=== PATIENT | female | born 1990 | race Caucasian/White ===

== ENCOUNTER → 2017-09-26 12:10 | Outpatient (CLI) | payer MEDICAID, SELFPAY ==
--- NOTE | 2017-09-26 12:10 | MASS_PTH ---
PATIENT: DONTE LAKE LOC: [facility] U#:[id number] AGE/SX: 35/F ROOM: RE09/26/[address]: Dr. Devin Mckeon MD : 1990 BED: DIS: SPEC #: [id number] RECD: 09/27/17 17:27 STATUS: ANAY SILVESTRE #: [id number] JA: 09/26/17 12:[address]: Devin Mckeon DEPT: SURGICAL PATHOLOGY RECD BY: Jolanta Lopez ENTERED: 09/28/17 11:19 SP TYPE: Mass OTHR DR: No Primary Care Phys [facility] Tissues: Skin of face, NOS Procedures: Surgery Specimen Level III HEADER OPERATION: Excision of left facial mass PRE-OP DIAGNOSIS: Left facial mass TISSUE SUBMITTED: Left facial mass MICROSCOPIC DIAGNOSIS Left facial mass, excision: Consistent with ruptured epidermal inclusion cyst with focal chronic inflammation and foreign body giant cell reaction. SJ:melonie 09/29/17 MICROSCOPIC DESCRIPTION Slides are reviewed. GROSS DESCRIPTION Received is one container labeled with the patient's name and not further designated. The specimen consists of a previously opened cyst measuring 1.5 x 1 x 0.8 cm. The entire specimen is submitted in one cassette. / ABBY:melonie 09/28/17 TC:5 CPT: 52421
== END ==
PROVIDERS: Visit Provider Otolaryngology
DX: R22.0 Localized swelling, mass and lump, head (principal)
CPT/HCPCS: 88304; 88305

== ENCOUNTER 2017-09-29 18:48 | Emergency (ER) | payer MEDICAID, SELFPAY ==
[2017-09-29 18:48] VITALS: BP 150/98; PULSE 75; RESP 16; TEMP 36.7; O2SAT 100; BMI 21.0
--- NOTE | 2017-09-29 19:28 | ED.VISSUMM ---
- ER Visit Summary Date of Service: 09/29/17 Chief Complaint: Back pain History of Present Illness: The patient is a 27 F presenting with back pain after fall. Patient states she was walking her dog down steps and tripped over the leash, fell down approximately 5 steps. She did not have loss of consciousness. She states she hit her left ear. She had a ear surgery approximately [address] Vences. She states she had a mass removed from her external ear. Denies other complaints. Denies possibility of . She states she has urinated since the fall and had no blood in her urine. Physical Examination: Vitals are stable. Patient is afebrile. Alert no acute distress. HEENT exam is unremarkable. Left external ear incision intact, no signs of infection or bleeding Neck is nontender Lungs are clear and equal bilaterally. Heart is regular rate and rhythm. Abdomen is soft nontender nondistended. Back: right paraspinal lumbar muscle tenderness Extremities are unremarkable. Skin is warm and dry. No focal neurologic deficit. Remainder of exam is unremarkable. Emergency Department Course and Treatment: X-ray the lumbar spine shows no acute process. She is given Valium p.o. She is advised to continue Tylenol at home. Advised to follow-up with Dr. Vences as needed. Advised return to ED if worsening complaints. Disposition: Discharge home Impression: Back pain status post mechanical fall This note was generated with [employer] dictation software. It may contain incorrect words, spelling, and punctuation that were not noted in review of the chart prior to signing ED Disposition - Plan for ED Patient: Chief Complaint: Back Referrals: Care Physician,No Primary [Primary Care Provider] -
[2017-09-29] MEDS: diazePAM 5 MG Tablet PO (19:38)
--- NOTE | 2017-09-29 19:40 | RAD_ITS ---
STUDY: X-RAY - LUMBAR SPINE REASON FOR EXAM: Female, 27 years old. Lower back pain after falling. TECHNIQUE: 3 view(s) of the lumbar spine were obtained. COMPARISON: Prior lumbar spine series of September 30, 2015 FINDINGS: Normal lumbar lordosis. There is no substantial scoliosis. There is a normal alignment of the vertebrae. Normal vertebral bodies and endplates. Normal disc space heights. The soft tissue structures are unremarkable. RAD/Lumbar Spine 2 or 3 Views IMPRESSION: Normal x-ray examination of the lumbar spine. Electronically Signed: Helen Man MD at 20:38 EST , Service support ,
--- NOTE | 2017-09-29 21:01 | ED.DEP ---
ED Disposition - Plan for ED Patient: Chief Complaint: Back Instructions: ED Low Back Pain Injury Referrals: Care Physician,No Primary [Primary Care Provider] - Henrik Mckeon MD [STAFF PHYSICIAN] -
[2017-09-29 21:21] VITALS: BP 137/88; PULSE 73; RESP 16; O2SAT 96
== END 2017-09-29 21:21 | disposition home or self-care (01) ==
LOC: ED 19:32
PROVIDERS: Emergency Provider Emergency Medicine
DX: M54.5 Low back pain (principal); W10.9XXA Fall (on) (from) unspecified stairs and steps, initial encounter; Y93.K1 Activity, walking an animal; Y92.9 Unspecified place or not applicable; Z98.890 Other specified postprocedural states
CPT/HCPCS: 72100; 99282

== ENCOUNTER 2017-10-18 22:10 | Emergency (ER) | payer MEDICAID, SELFPAY ==
[2017-10-18 22:11] VITALS: BP 113/76; PULSE 81; RESP 15; TEMP 36.5; BMI 20.5
--- NOTE | 2017-10-18 23:09 | ED.VISSUMM ---
- ER Visit Summary Date of Service: 10/18/17 Chief Complaint: Rash History of Present Illness: The patient is a 27 F with no primary care physician. She reports that she has a rash that began 2-3 days ago. It is on both of her forearms and her anterior and posterior neck. It is that it itches. Patient denies any change in soap, shampoo, laundry detergent, or fabric softener. No new clothing, bedding, carpeting, or pets. No new medications in the past month. Physical Examination: Vitals: Stable. Afebrile. General: Well-nourished and well-developed. Head: Normocephalic atraumatic. Neck: Supple, no lymphadenopathy. No JVD. Nontender. Cardiovascular: Regular rate and rhythm. No murmurs. Respiratory: No respiratory distress. Clear to auscultation bilaterally. Abdominal: Soft, nontender, nondistended, normal bowel sounds. No guarding, rebound, or peritoneal signs. Back: Nontender. Extremities: Nontender, no edema. Skin: 1-2 mm macular papular pink lesions that are scattered over the anterior surface of her forearms bilaterally. These are also over the anterior surface of her neck both anteriorly and posteriorly. There are no vesicles. No urticaria. No pustules. Neurologic: Alert and oriented ?3. Cranial nerves II through XII are intact. Normal strength and sensation. Psych: Normal affect. Emergency Department Course and Treatment: Did not have an explanation for the patient's rash. It does not appear to be anything that is life-threatening. I suspect it is a contact dermatitis. She will have the pruritus treated with Benadryl here. Treatment Plan: Patient will be discharged on Zyrtec. Instructed to follow-up the [facility] in 1 week if not improving. Disposition: To home in improved and stable condition. Impression: 1. Dermatitis, uncertain cause. This note was generated with [employer] dictation software. It may contain incorrect words, spelling, and punctuation that were not noted in review of the chart prior to signing ED Disposition - Plan for ED Patient: Disposition: Home or Assisted Living Chief Complaint: Rash Instructions: ED Dermatitis Contact Prescriptions: Cetirizine HCl [Zyrtec] 10 mg PO DAILY #14 tab.rapdis Referrals: [facility] [NON-STAFF] - 1 Week if not improving
[2017-10-18 23:26] VITALS: PULSE 86; RESP 17; O2SAT 99
[2017-10-18] MEDS: DiphenhydrAMINE 25 MG Capsule 50 MG PO (23:26)
== END 2017-10-18 23:28 | disposition home or self-care (01) ==
LOC: ED 23:18
PROVIDERS: Emergency Provider Emergency Medicine
DX: L30.9 Dermatitis, unspecified (principal); Z72.0 Tobacco use
CPT/HCPCS: 99283

== ENCOUNTER 2017-10-23 21:15 | Emergency (ER) | payer MEDICAID, SELFPAY ==
[2017-10-23 21:17] VITALS: BP 140/89; PULSE 89; PULSE 98; RESP 14; RESP 17; TEMP 37.1; O2SAT 100; O2SAT 99; BMI 21.2
--- NOTE | 2017-10-23 22:36 | ED.VISSUMM ---
- ER Visit Summary Date of Service: 10/23/17 Chief Complaint: Mid to lower back pain after lifting a stove History of Present Illness: The patient is a 27 F states that she was helping her dad left the stove earlier today and she felt pain in her mid lower back after lifting. Denies any numbness, tingling or weakness in her lower extremities. No prior back surgery. She has had prior back pain. She denies any fever. She denies any dysuria. She denies any bowel or bladder incontinence or retention. She denies any weakness in her lower extremities. Pain worse with movement. Physical Examination: Appearing young female. Vital signs are stable and afebrile. She does not look septic or toxic. She is in no acute distress. H EENT exam is normal. Neck nontender no lymphadenopathy. Lungs clear to auscultation bilaterally. Heart rate and rhythm no murmur. Abdomen soft nontender nondistended no giving or masses. She is moving all 4 extremities. Neurovascular intact. 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 Full range of motion of both upper extremities. Both lower extremities are neurovascular intact. No cauda equina. No saddle anesthesia. Normal medial thigh sensation. 5 out of 5 motor strength in both dorsi and plantar flexion. Full range of motion of both lower extremities. Negative straight leg raise bilaterally. Neurologic exam normal. NIH is 0. Back exam parathoracic and upper lumbar soft tissue tenderness consistent with back strain. No redness or warmth. Test Results: None Emergency Department Course and Treatment: Patient's history and exam is consistent with parathoracic and paralumbar myofascial strain. She has had prior negative back x-rays. They are not warranted at this time. Treatment Plan: [place] here for pain. Otherwise anti-inflammatories at home. No narcotic prescription. Hot shower and warm bath. Massage. Disposition: dc Impression: Parathoracic and lumbar strain This note was generated with [employer] dictation software. It may contain incorrect words, spelling, and punctuation that were not noted in review of the chart prior to signing ED Disposition - Plan for ED Patient: Chief Complaint: Back Referrals: Care Physician,No Primary [Primary Care Provider] -
--- NOTE | 2017-10-23 22:48 | ED.DEP ---
ED Disposition - Plan for ED Patient: Disposition: Home or Assisted Living Chief Complaint: Back Instructions: ED Sprain Strain Lumbar Referrals: Henrik Boothe MD [STAFF PHYSICIAN] - 10-14 Days if not better Additional Instructions: Motrin and Tylenol for pain. Hot shower and warm bath to relax the muscles. Massage. Call follow-up the primary care physician if not improving.
[2017-10-23] MEDS: oxyCODONE 5 MG Tablet PO (23:09)
[2017-10-23 23:10] VITALS: BP 132/75; PULSE 78; RESP 18; O2SAT 98
== END 2017-10-23 23:11 | disposition home or self-care (01) ==
PROVIDERS: Emergency Provider Emergency Medicine
DX: S29.012A Strain of muscle and tendon of back wall of thorax, initial encounter (principal); S39.012A Strain of muscle, fascia and tendon of lower back, initial encounter; X50.9XXA Other and unspecified overexertion or strenuous movements or postures, initial encounter; Y93.9 Activity, unspecified; Y92.9 Unspecified place or not applicable; Y99.9 Unspecified external cause status; Z72.0 Tobacco use
CPT/HCPCS: 99283

== ENCOUNTER → 2017-10-30 22:35 | Outpatient (CLI) | payer MEDICAID, SELFPAY ==
[2017-11-05 06:20] LABS: HPV Reflexed? NOT INDICATED
== END ==
PROVIDERS: Visit Provider Obstetrics & Gynecology
DX: Z12.4 Encounter for screening for malignant neoplasm of cervix (principal)
CPT/HCPCS: 88175; G0145

== ENCOUNTER 2017-11-01 21:40 | Emergency (ER) | payer MEDICAID, SELFPAY ==
[2017-11-01 21:41] VITALS: BP 136/84; PULSE 100; RESP 16; TEMP 36.8; O2SAT 99; BMI 22.1
--- NOTE | 2017-11-01 22:39 | RAD_ITS ---
STUDY: X-RAY - LUMBAR SPINE REASON FOR EXAM: Female, 27 years old. Back pain after heavy lifting. TECHNIQUE: 3 view(s) of the lumbar spine were obtained. COMPARISON: 09/29/2017. FINDINGS: Normal lumbar lordosis. There is no substantial scoliosis. There is a normal alignment of the vertebrae. Normal vertebral bodies and endplates. Normal disc space heights. The soft tissue structures are unremarkable. There are surgical clips overlying the pelvis, consistent with prior tubal ligation. RAD/Lumbar Spine 2 or 3 Views IMPRESSION: Normal x-ray examination of the lumbar spine. Electronically Signed: Billy Holt MD at 0:04 EDT , Service support ,
--- NOTE | 2017-11-01 22:39 | RAD_ITS ---
STUDY: X-RAY - THORACIC SPINE REASON FOR EXAM: Female, 27 years old. Back pain TECHNIQUE: 2 view(s) of the thoracic spine were obtained. COMPARISON: None. FINDINGS: Normal kyphosis of the thoracic spine. There is no substantial scoliosis. Normal thoracic vertebrae and endplates. Normal disc space heights. The soft tissue structures are unremarkable. RAD/Thoracic Spine 2 Views IMPRESSION: Normal x-ray examination of the thoracic spine. Electronically Signed: Andrea Perry DO at 23:45 EDT , Service support ,
[2017-11-01] MEDS: Ketorolac 15 MG/ML Vial IM (22:58)
[2017-11-01 23:07] VITALS: BP 107/71; PULSE 83; O2SAT 98
[2017-11-01] MEDS: Ondansetron ODT 4 MG Tablet PO (23:07)
--- NOTE | 2017-11-01 23:57 | ED.VISSUMM ---
- ER Visit Summary Date of Service: 11/01/17 Chief Complaint: Back pain History of Present Illness: The patient is a 27 F presenting for evaluation secondary back pain. Patient states approximately 3 weeks ago she helped a friend move a stove. Patient states that she felt a pop in her thoracic back. She claims that she came into the emergency department and the doctor never even looked at her and told her that she had a strain spine. Patient states that she has had continued pain over the course of 3 weeks with some radiation down her left leg. She denies any bowel or bladder incontinence, fevers, recent injections procedures her history is of IV drug use. Denies any fevers or weight loss. Patient states the Tylenol has been helping her pain. Physical Examination: Vitals: Within normal limits General: Well-nourished well-developed no acute distress Head: Normocephalic atraumatic ENT: Moist mucous membranes Neck: Supple no JVD Cardiovascular: Heart regular rate and rhythm no murmurs Respiratory: Respirations nondistressed, lung sounds clear to auscultation bilaterally Abdominal: Soft, nontender, nondistended, normal bowel sounds, no evidence of abdominal masses or pulsatile mass Back: Normal to inspection, no midline tenderness to palpation, paraspinal tenderness to palpation noted in the thoracic spine, straight leg raise negative bilaterally Extremities: Nontender, nonedematous, 2+ radial and PT pulses bilaterally symmetric Skin: Normal color no rash Neuro: 5/5 strength hip flexion, knee flexion, knee extension, dorsiflexion, plantarflexion, EHL. Sensation intact over all dermatomes of the lower extremities bilaterally, 2+ patellar and Achilles reflexes bilaterally symmetric, negative clonus bilaterally Test Results: T-spine and L-spine x-rays are negative per my personal interpretation Emergency Department Course and Treatment: Patient presented secondary to back pain. Patient has never had any sort of imaging, so x-rays were obtained. These are found to be negative. Patient's physical exam and history still seem consistent with a strain. Patient will be placed on NSAIDs and muscle relaxers and instructed to follow-up with primary care. Disposition: Discharge Impression: 1. Thoracic back strain subsequent encounter This note was generated with [employer] dictation software. It may contain incorrect words, spelling, and punctuation that were not noted in review of the chart prior to signing ED Disposition - Plan for ED Patient: Disposition: Home or Assisted Living Chief Complaint: Back Diagnosis: Thoracic myofascial strain Instructions: ED Sprain Strain Lumbar Prescriptions: Naproxen [Naprosyn] 500 mg PO BID PRN #20 tab Cyclobenzaprine [Flexeril] 10 mg PO TID PRN #20 tab PRN Reason: Muscle Spasm Referrals: Gianluca Brooks MD [STAFF PHYSICIAN] -
[2017-11-02] MEDS: Orphenadrine 60 MG/2 ML Ampul IM (00:11)
[2017-11-02 00:37] VITALS: BP 113/81; RESP 18; O2SAT 100
== END 2017-11-02 00:38 | disposition home or self-care (01) ==
PROVIDERS: Emergency Provider Emergency Medicine
DX: S29.012A Strain of muscle and tendon of back wall of thorax, initial encounter (principal); X50.0XXA Overexertion from strenuous movement or load, initial encounter; Y93.9 Activity, unspecified; Y92.9 Unspecified place or not applicable; Y99.9 Unspecified external cause status; Z72.0 Tobacco use
CPT/HCPCS: 72070; 72100; 96372; 99282

== ENCOUNTER → 2017-11-30 11:44 | Outpatient (CLI) | payer MEDICAID, SELFPAY ==
--- NOTE | 2017-11-30 | EMB_PTH ---
PATIENT: DONTE LAKE LOC: [facility] U#:[id number] AGE/SX: 35/F ROOM: RE11/30/[address]: Dr. Constantine Najera MD : 1990 BED: DIS: SPEC #: [id number] RECD: 11/30/17 14:40 STATUS: ANAY SILVESTRE #: [id number] JA: 11/30/17 00:[address]: Constantine Najera DEPT: SURGICAL PATHOLOGY RECD BY: Hudson López Tissues: Endometrium, NOS Procedures: Surgery Specimen Level IV HEADER OPERATION: Endometrial biopsy PRE-OP DIAGNOSIS: N92.5, N92.0 TISSUE SUBMITTED: Endometrial biopsy MICROSCOPIC DIAGNOSIS Endometrial biopsy: Secretory endometrium. ABBY:melonie 12/01/17 MICROSCOPIC DESCRIPTION Slides are reviewed. GROSS DESCRIPTION Received in fixative is one container labeled with the patient's name and designated EM biopsy. The specimen consists of multiple irregular fragments of pink-red soft tissue that in aggregate measure 2.5 x 1 x 0.1 cm. The specimen is totally submitted in one cassette. / SJ:rg 11/30/17 TC:4 CPT: 70420
[2017-11-30 13:10] LABS: Thyroid Stim Hormone (TSH) 2.18 uIU/mL (0.358-3.74)
[2017-12-01 11:17] LABS: Cancer Antigen 125 10.5 U/mL (0.0-38.1)
== END ==
PROVIDERS: Visit Provider Obstetrics & Gynecology
DX: N92.0 Excessive and frequent menstruation with regular cycle (principal); N99.83 Residual ovary syndrome; N92.5 Other specified irregular menstruation
CPT/HCPCS: 36415; 84443; 86304; 88305

== ENCOUNTER 2017-12-18 08:12 | Day surgery (SDC) | payer MEDICAID, SELFPAY ==
--- NOTE | 2017-12-17 14:26 | HP.PCM_ITS ---
History and Physical Date of Admission: 12/18/17 Surgical History and Physical Lulú Tracy, a 27 year old female 2 0 0 0 2, presents for L/S LSO, H/S, D and C, HTA on December 18, 2017 at 10:15. -- Menorrhagia, Complex Left Ovarian Cyst -- Heavy menses which began years ago. It occurs with menses. It is located in the vagina. Severity is intolerable and worsening; Associated signs and symptoms are u/s shows complex left adnexal mass. Additional comments are: prior tubal. MEDICATIONS HISTORY: Patient is also takin. 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 Accidents - no injuries of consequence Hospitalizations - as child - heart testing Review of Systems: GENERAL - Denies fever, or chills SKIN - Denies skin changes EYES - Denies visual changes EARS - Denies difficulty hearing NOSE - Denies nasal congestion or bleeding MOUTH - Denies sore throat or difficulty swallowing NECK - Denies pain or swelling RESPIRATORY - Denies shortness of breath or wheezing CARDIOVASCULAR - Denies palpitations or chest pain GASTROINTESTINAL - Denies nausea, vomiting, diarrhea, constipation GENITOURINARY - Denies dysuria, frequency of urination, incontinence of urine MUSCULOSKELETAL - Denies joint or muscle pain NEUROLOGICAL - Denies localized numbness or weakness PSYCHIATRIC - Denies depression or anxiety ENDOCRINE - Denies heat or cold intolerance, weight loss or gain HEMATO-IMMUNOLOGIC - Denies excessive bleeding with cuts SOCIAL HISTORY: Alcohol Use - denies drinking Smoking - 5-6 cigarettes daily and Vaps Diet - balanced Diet and caffeine < 2 drinks per day Lifestyle - moderate stress lifestyle Exercise - regular and walking Seat Belt Use - always Employer - unemp Illicit Drug Use - denies use of street drugs Sexual Activity - ACTIVE ONE PARTNER Residence - lives with mother and mom's SO in [place] - [place] Spouse-Sig Other Phone No - -- Children Name(s) - Renae Macias Control - Prior Tubal FAMILY HISTORY: Mother: pulmonary heart disease, epilepsy, asbes and Heart Disease. Father: DM II. Brother: epilepsy. Maternal Grandmother: dementia and DM I. Maternal Grandfather: , Asthma and Coronary heart disease. Paternal Grandmother: cancer. Paternal Grandfather: cancer. Paternal Aunt: throat cancer. MENSTRUAL HISTORY: LMP Known?- DefiniteAmount/Duration - 5-6 DAYS, Regularity - Irregular, Frequency - variable days, LMP - 11/17/17, Age Onset Menarche - 12 PAST PREGNANCIES: Total Pregnancies - 2; Full Term Pregnancies - 2; Premature - 0; Abortions, Induced - 0; Abortions, Spontaneous - 0; Ectopics - 0; Multiple Births - 0; Living Children - 2 SURGICAL HISTORY: 1. 07/24/2017 Lap BTO with filshie clips and distal BPS, dx hysteroscopy, D and C, lysis of adhesions ; Constantine Najera M.D. - 2. 09/26/2017 (L) Ear Surgery ; - PHYSICAL EXAM BP- 114/72 Sitting, Right arm, regular cuff Weight- 122.03650 lbs Height- 64 inch BMI:20.99 CONSTITUTIONAL - NAD, well nourished, and well developed SKIN - No rash, lesions, or ulcers HEENT - Normocephalic, PERRLA, EOMI NECK - No nodes, no nuchal rigidity and thyroid normal size and texture LYMPH NODES - Palpation of lymph nodes in neck and groins within normal limits LUNGS - CTA x2 without wheezes, crackles or rales CARDIAC - Regular rate and rhythm without rubs, murmurs, or gallops BREAST - No dominant masses, no tenderness, no axillary adenopathy, no nipple discharge, no skin changes ABDOMEN - Without hepatosplenomegaly, distention, masses, rebound, or guarding; normal bowel sounds; no hernias EXTREMITIES - No edema or calf tenderness NEUROLOGICAL - Cranial nerves II-XII grossly intact PSYCHIATRIC - A and O to time, place, person, mood and affect DETAILED PELVIC EXAM External Genitial Vagina - non-tender without lesions Urethra/Urethral Meatus - non-tender Bladder - non-tender Vagina - vaginal myers are pink and moist without loss of rugae and no evidence of atropy Cervix - without cervical motion tenderness and has normal size and features without evident lesions Uterus - multiparous size 6 cm & wt 75-125 g Adnexa - clear without masses or tenderness ASSESSMENT/PLAN: Menorrhagia; Ovarian Cyst EMBx, U/S, TSH and CA-125 OK. Plan to proceed with H/S, HTA, D and C and L/S LSO. Discussed RBAs and all questions answered.
--- NOTE | 2017-12-18 | EMB_PTH ---
PATIENT: DONTE LAKE [place] [facility] [id number] AGE/SX: 27/F ROOM: RE12/18/[address]: Dr. Constantine Najera MD : 1990 BED: DIS: 12/18/2017 SPEC #: [id number] RECD: 12/18/17 14:02 STATUS: ANAY SILVESTRE #: [id number] JA: 12/18/17 00:[address]: Constantine Najera DEPT: SURGICAL PATHOLOGY RECD BY: Hudson López ENTERED: 12/18/17 14:03 SP TYPE: ENDOM BX/C JERMAINE DR: No Primary Care Phys Tissues: A - Endometrium, NOS B - Left ovary Procedures: Surgery Specimen Level IV HEADER OPERATION: Left laparoscopic salpingo-oophorectomy PRE-OP DIAGNOSIS: Complex left ovarian cyst TISSUE SUBMITTED: A. Endometrial curettings, B. Left ovary MICROSCOPIC DIAGNOSIS A. Endometrial curettings: Proliferative endometrium. B. Left ovary, oophorectomy: Hemorrhagic cyst (3 cm in greatest dimension). See comment. Physiologic follicular and corpus luteum cysts. ABBY:melonie 12/19/17 COMMENT B. No obvious lining is identified in the largest hemorrhagic cyst. MICROSCOPIC DESCRIPTION Slides are reviewed. GROSS DESCRIPTION A - Received in fixative is one container labeled with the patient's name and designated endometrial curettings. The specimen consists of multiple fragments of hemorrhagic soft tissue that in aggregate measure 3 x 2.5 x 0.2 cm. The specimen is totally submitted in one cassette. B - Received in fixative is one container labeled with the patient's name and designated left ovary. The specimen consists of a solid cystic ovary measuring 3.5 x 3.5 x 1.5 cm and weighing 9 gm. The ovary is previously opened. The external surface is smooth. Sections reveal a smooth walled cyst measuring 3 cm in greatest dimension. Health Plan Manager sections are submitted in four cassettes. / ABBY:melonie 12/18/17 TC:5 CPT: 11003 x2
[2017-12-18 08:46] VITALS: BP 110/68; PULSE 63; RESP 16; TEMP 36.5; O2SAT 99; BMI 21.9
[2017-12-18 08:47] LABS: Hematocrit 36.1 % (37-47); Hemoglobin 11.8 g/dl (12.0-15.0); Mean Corp Hgb Conc 32.7 g/gl (32-36); Mean Corpuscular Hgb 27.7 pg (27.0-32.0); Mean Corpuscular Volume 84.7 fL (81-99); Mean Platelet Vol. 11.9 fl (6.2-12.0); Platelet Count 184 K/mm3 (150-450); RBC Distribution Width CV 12.9 % (11.6-14.6); RBC Distribution Width SD 39.2 fl (35.1-43.9); Red Blood Count 4.26 M/mm3 (4.2-5.4); White Blood Count 5.9 K/mm3 (4.4-11.0)
[2017-12-18 08:51] LABS: Scan Indicated on CBC? Y/N NO
[2017-12-18 09:10] LABS: Prothrombin Time (Protime)PT. 13.4 SECONDS (11.7-14.9)
[2017-12-18 09:11] LABS: Partial Thromboplast Time 31.4 Seconds (24.1-36.2)
--- NOTE | 2017-12-18 10:29 | OP.PCM_ITS ---
Operative Report Date of Procedure: 12/18/17 Surgeon: Constantine Najera MD, FACOG [employer] Attendant: RACHAEL Mao Anesthesia: RACHAEL Meyer Type of anesthesia: General Endotracheal Procedure: Diagnostic Hysteroscopy, Dilation and Curettage, Hydrothermal Ablation; Diagnostic Laparoscopy, Left Oophrectomy, Lysis of Adhesions Pre-op: Menorrhagia, Left Complex Ovarian Cyst Post-Op: Menorrhagia, Left Complex Ovarian Cyst; Adhesions Findings: 10 cm EM cavity with normal-appearing endometrium and a possible 3 by 0.5 centimeter polyp; bulbous cervix which protruded to within about 3 cm of the vaginal introitus with tenaculum pulldown. Normal pelvis with evidence of prior bilateral salpingectomy and Filshie clip placement on tubes. Left ovary which appeared cystic but was adhered densely to the left pelvic sidewall. Left ovary approximately 4-5 cm x 2 cm x 3 cm. Right ovary and uterus appeared normal. 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 Indication: This is a 27 year old patient status post tubal ligation who has been having problems with extremely heavy menses. Conservative measures have not been helpful. In the course of her workup a complex left ovarian cyst was also noted. Endometrial sampling was benign and pelvic ultrasound showed that ablation may be helpful. Pt has been counseled regarding the risks, benefits and alternatives of this procedure and all questions answered. She understands that only about half of patients will have amenorrhea after this procedure. Procedure: Patient taken to the operating room where after induction of general anesthesia the patient was prepped and draped in the usual sterile fashion. Bladder was drained of urine with a catheter. Anterior cervix grasped and cervix was dilated to about 17 Divehi size. Hysteroscopic hydrothermal ablation (HTA) unit was placed in the cervix and the above findings were noted. HTA unit was removed and the uterus was gently curretted removing all contents. An HTA ablation cycle was then carried out at about 90 degrees Centigrade for 10 minutes with virtually no fluid loss during the procedure. It was necessary to use 3 HTA cartridges during the procedure as the uterus expanded during the initial heat cycles and it would not pass the leak test. We eventually overcame this by giving IV Pitocin and IM Methergine and lowering the HTA unit about 3-4 inches below the vagina. After an appropriate cool down the HTA unit was removed with minimal bleeding noted. Conn cannula was placed and attention was turned toward the laparoscopic portion of the procedure. Approximately 15 cc of half percent ropivacaine was injected subumbilically suprapubically and about 10 cm left of the umbilical trocar. A 5 mm bladeless trocar was placed subumbilically and intraperitoneal placement confirmed. After CO2 insufflation was complete, a 5 mm bladeless trocar was introduced suprapubically. The above findings were noted. A 5 mm port was then placed about 10 cm left of the subumbilical port under direct visualization. The above findings were noted. The ovary was taken down from the left pelvic sidewall with sharp scissors dissection after identifying the ureter which was peristalsing approximately a centimeter posteriorly. An Enseal device was used to divide the left infundibulopelvic ligament. The 5 mm trocar was removed and a 10/12 mm bladeless trocar was then introduced suprapubically and the ovary and tube were placed in an Endobag. These were brought through the skin without difficulty. There was noted to be some oozing from the left pelvic sidewall which was cauterized using the Enseal device and Nataliia was placed across this area to help with postoperative hemostasis. Irrigation was also used prior to placing the Nataliia. The peritoneal cavity and upper abdomen were examined. Photographs were taken. Laparoscopic instruments with as much CO2 gas as possible were removed and incisions were closed with interrupted 4-0 Monocryl suture. The lower incision was closed with running subcutaneous 3-0 Vicryl suture before closing with a 4-0 Monocryl suture subcuticularly. Steri- Strips placed across the incisions. The patient tolerated the procedure well and was taken to the recovery room in satisfactory condition. Sponge, instruments and needle counts were all correct. There were no apparent complications of the surgery. Cefotan 2 gms IV was given prior to the procedure. Estimated Blood Loss: Minimal Specimen to Pathology: Endometrial Curettings, left ovary
--- NOTE | 2017-12-18 10:31 | DCINST_ITS ---
Discharge Diet: No Restrictions - Increase fluid intake for the next 48 hours. Discharge Activity: Return to Normal Activity, May Drive - when you are no longer taking pain/narcotic medicines., May Shower, May Take a Tub Bath May resume sexual activity in: 3 weeks, 4 weeks Additional Activity Instructions:: Ambulate often the next week after surgery. Nothing in the vagina for 5 days. Call your doctor if your incision/area has: Continuous Slow Oozing, Sudden Increased Bleeding, Increased Pain/ Swelling, Increased Redness, Foul Smelling Discharge Call your doctor if you observe: Fever of 101 or Higher, Inability to urinate, Inability to have a bowel movement, Using more than one pad per hour Allergies/Adverse Reactions: Allergies acetaminophen [From [place]] Allergy (Verified 12/11/17 08:44) Hives hydrocodone [From [place]] Allergy (Verified 12/11/17 08:44) Hives ibuprofen [From Motrin] Allergy (Verified 12/11/17 08:44) Itching codeine Adverse Reaction (Verified 12/11/17 08:44) Nausea/Vom/Diarrhea Medications to take at Discharge Oxycodone [Oxyir] 5 mg PO Q4H PRN PRN 7 Days #14 tab 12/18/17 The following prescriptions were given: Oxycodone [Oxyir] 5 mg PO Q4H PRN PRN 7 Days #14 tab PRN Reason: Severe Pain (6-1010) Primary Care Physician: Care Physician,No Primary [Primary Care Provider] - Please Follow Up With: Constantine Najera MD - [phone] When: 2-3 weeks
[2017-12-18] MEDS: Methylergonovine 0.2 MG/ML Ampul IM (11:05)
[2017-12-18] MEDS: Ropivacaine 0.5% 30 ML Vial (12:00)
[2017-12-18 12:41] VITALS: BP 110/68; BP 132/80; PULSE 78; RESP 16; TEMP 36; O2SAT 100
[2017-12-18 13:00] VITALS: BP 110/68; BP 153/73; PULSE 60; RESP 16; O2SAT 99
[2017-12-18 13:15] VITALS: BP 110/68; BP 165/97; PULSE 51; RESP 16; TEMP 36.4; O2SAT 99
[2017-12-18] MEDS: oxyCODONE 5 MG Tablet PO (13:19)
[2017-12-18 15:38] VITALS: BP 110/68; BP 138/70; PULSE 68; RESP 16; O2SAT 98
== END 2017-12-18 15:44 | disposition home or self-care (01) ==
LOC: SDC 08:13
PROVIDERS: Visit Provider Obstetrics & Gynecology
PROC: (CPT 58720; principal; 2017-12-18 09:40)
PROC: 0U5B8ZZ Destruction of Endometrium, Via Natural or Artificial Opening Endoscopic (ICD-10-PCS; CPT 58563; 2017-12-18 09:40)
DX: N83.12 Corpus luteum cyst of left ovary (principal); N83.02 Follicular cyst of left ovary; N92.0 Excessive and frequent menstruation with regular cycle; F17.210 Nicotine dependence, cigarettes, uncomplicated; Z98.51 Tubal ligation status
CPT/HCPCS: 58563; 58661; 36415; 85027; 85610; 85730; 86850; 86900; 88305; J7120; C1760

== ENCOUNTER 2018-01-03 21:59 | Emergency (ER) | payer MEDICAID, SELFPAY ==
[2018-01-03 22:00] VITALS: BP 132/90; PULSE 101; RESP 20; TEMP 37; O2SAT 100; BMI 22.3
--- NOTE | 2018-01-03 22:27 | ED.VISSUMM ---
- ER Visit Summary Date of Service: 01/03/18 Chief Complaint: Pain and drainage left lower quadrant laparoscopic port site History of Present Illness: The patient is a 27 F who had surgery December [address] Najera. She underwent thermal ablation, diagnostic laparoscopic surgery with lysis of adhesion and left oophorectomy. She presents today because of drainage from the port site. She denies fever, chills night sweats. She denies discoloration of her skin. She complains of burning pain at the port site. She denies dysuria, frequency, urgency or hematuria. She denies vaginal discharge. She denies any flank pain. She denies any vomiting or diarrhea. She reports nausea. Physical Examination: The port site is 3 mm in size. There is serous sanguinous drainage noted. There is no erythema, warmth, induration, fluctuance or lymphangitis. There is no inguinal lymphadenopathy. Patient has pain out of proportion to tactile stimulus. Abdomen is soft nontender with normal bowel sounds. There is no flank discomfort. Heart is regular without murmur, gallop or rub. S1 and S2 are normal. Lungs are clear to auscultation with good movement of air bilaterally. Test Results: None are indicated Emergency Department Course and Treatment: Wound dressing and Tylenol for pain. Of note patient has numerous allergies to opiates and NSAIDs. Treatment Plan: Follow-up with Dr. Najera as needed Disposition: Discharged to home with appropriate home-going instruction Impression: Postop wound without evidence of infection (laparoscopic port site left lower quadrant) This note was generated with [employer] dictation software. It may contain incorrect words, spelling, and punctuation that were not noted in review of the chart prior to signing ED Disposition - Plan for ED Patient: Disposition: Home or Assisted Living Chief Complaint: Wound Check Instructions: ED Wound Check Post Op No Infec Referrals: Care Physician,No Primary [Primary Care Provider] - Constantine Najera MD [STAFF PHYSICIAN] - 3-5 Days if not improving Additional Instructions: Take Tylenol for your pain
--- NOTE | 2018-01-03 22:33 | NURSING ---
PATIENT LEFT WITHOUT DISCHARGE PAPERS OR BEING REGISTERED.
== END 2018-01-03 22:35 | disposition home or self-care (01) ==
LOC: ED 22:34
PROVIDERS: Emergency Provider Emergency Medicine
DX: T81.89XA Other complications of procedures, not elsewhere classified, initial encounter (principal); R11.0 Nausea; Z98.890 Other specified postprocedural states; Z72.0 Tobacco use
CPT/HCPCS: 99282

== ENCOUNTER 2018-01-21 16:12 | Emergency (ER) | payer MEDICAID, SELFPAY ==
[2018-01-21 16:12] VITALS: BP 135/74; PULSE 90; RESP 16; TEMP 37.6; O2SAT 99; BMI 21.9
[2018-01-21 16:29] VITALS: PULSE 86; RESP 12; O2SAT 100
[2018-01-21 16:32] VITALS: PULSE 88
--- NOTE | 2018-01-21 16:34 | ED.VISSUMM ---
- ER Visit Summary Date of Service: 01/21/18 Chief Complaint: Left shoulder pain History of Present Illness: The patient is a 27 F states he started getting left neck and shoulder pain last night at rest. Worse with movement. Denies any fever. No chest pain. No shortness of breath. Denies any prior history. States she sleeps on the couch daily. Denies any weakness or numbness to her left upper extremity. Physical Examination: Well-appearing young female. Vital signs are stable afebrile. Pulse ox 9 9% room air no signs of hypoxia. HEENT exam unremarkable. Trachea midline. No lymphadenopathy. She has left trapezius tenderness consistent with myofascial spasm. She has full range of motion her left shoulder. Left hand is neurovascularly intact with 5 out of 5 silvering applicator strength normal touch sensation normal range of motion. Normal radial pulse. Both radial pulses are equal and symmetrical. Lungs clear to auscultation bilaterally. Heart regular rhythm no murmur rate about 90. Chest wall nontender. Abdomen soft nontender. She is moving all 4 extremities. Neurovascularly intact. Back exam is consistent with left trapezial soft tissue tenderness consistent with muscle spasm. Neurologic exam is normal with no focal motor or sensory deficits. Test Results: None Emergency Department Course and Treatment: P.o. Valium here. She has a ride home. Treatment Plan: She will be treated as muscle spasm. She has care source insurance she will be written for [facility]. Disposition: Discharge Impression: Acute left trapezius muscle spasm This note was generated with [employer] dictation software. It may contain incorrect words, spelling, and punctuation that were not noted in review of the chart prior to signing ED Disposition - Plan for ED Patient: Chief Complaint: Other, Pain/Inj Referrals: Care Physician,No Primary [Primary Care Provider] -
--- NOTE | 2018-01-21 16:37 | ED.DCSUM_ITS ---
- ER Visit Summary Date of Service: 01/21/18 Chief Complaint: Left shoulder pain History of Present Illness: The patient is a 27 F states he started getting left neck and shoulder pain last night at rest. Worse with movement. Denies any fever. No chest pain. No shortness of breath. Denies any prior history. States she sleeps on the couch daily. Denies any weakness or numbness to her left upper extremity. Physical Examination: Well-appearing young female. Vital signs are stable afebrile. Pulse ox 9 9% room air no signs of hypoxia. HEENT exam unremarkable. Trachea midline. No lymphadenopathy. She has left trapezius tenderness consistent with myofascial spasm. She has full range of motion her left shoulder. Left hand is neurovascularly intact with 5 out of 5 campground caretaker strength normal touch sensation normal range of motion. Normal radial pulse. Both radial pulses are equal and symmetrical. Lungs clear to auscultation bilaterally. Heart regular rhythm no murmur rate about 90. Chest wall nontender. Abdomen soft nontender. She is moving all 4 extremities. Neurovascularly intact. Back exam is consistent with left trapezial soft tissue tenderness consistent with muscle spasm. Neurologic exam is normal with no focal motor or sensory deficits. Test Results: None Emergency Department Course and Treatment: P.o. Valium here. She has a ride home. Treatment Plan: She will be treated as muscle spasm. She has care source insurance she will be written for [facility]. Disposition: Discharge Impression: Acute left trapezius muscle spasm This note was generated with [employer] dictation software. It may contain incorrect words, spelling, and punctuation that were not noted in review of the chart prior to signing ED Disposition - Plan for ED Patient: Chief Complaint: Other, Pain/Inj Referrals: Care Physician,No Primary [Primary Care Provider] -
--- NOTE | 2018-01-21 16:37 | ED.DEP ---
ED Disposition - Plan for ED Patient: Disposition: Home or Assisted Living Chief Complaint: Other, Pain/Inj Instructions: ED Spasm Muscle Prescriptions: Cyclobenzaprine [Flexeril] 10 mg PO TID #20 tab Referrals: Nolberto Ang MD [NON-STAFF] - Additional Instructions: Tylenol for pain. Flexeril for muscle relaxant. Hot shower, warm bath and massage. Secondary to muscle spasm of your left neck and shoulder.
[2018-01-21] MEDS: diazePAM 5 MG Tablet 10 MG PO (16:41)
== END 2018-01-21 16:43 | disposition home or self-care (01) ==
PROVIDERS: Emergency Provider Emergency Medicine
DX: M62.838 Other muscle spasm (principal); Z72.0 Tobacco use
CPT/HCPCS: 99284

== ENCOUNTER 2018-09-27 15:58 | Emergency (ER) | payer MEDICAID, SELFPAY ==
[2018-09-27 15:58] VITALS: BP 121/70; PULSE 75; RESP 16; TEMP 37; O2SAT 100; BMI 21.0
[2018-09-27 16:26] LABS: Mucous, Urine 0 SEEN /hpf (<or=2+); Red Blood Cells-Urine 0 SEEN /hpf (0-5)
[2018-09-27 16:34] LABS: Color, Urine Yellow (Yellow); Glucose, Dipstick Normal (Normal); Ketone-Dipstick Negative (Negative); Leukocyte Esterase-Dipstick 500 /ul (Negative); Nitrite-Dipstick Negative (Negative); Occult Blood-Urine 10 /ul (Negative); Protein-Dipstick 15 mg/dl (Negative); Specific Gravity, Urine 1.015 (1.002-1.030); Urine Bilirubin Dipstick Negative (Negative); Urine Clarity Cloudy (Clear); Urine Urobilinogen 1 mg/dl (Normal); Urine pH 6.5 (5.0 - 8.0)
[2018-09-27 16:43] LABS: Bacteria 3+ /hpf (None Seen); Transitional Epithelial - Ur 0 SEEN /hpf (0-5)
[2018-09-27 16:44] LABS: White Blood Cells 50-100 SEEN /hpf (0-5)
[2018-09-27 16:45] LABS: Squamous Epithelial Cells - UA 50-100 SEEN /hpf (5-10)
[2018-09-27 18:14] VITALS: BP 116/70; PULSE 80; RESP 14; O2SAT 98
--- NOTE | 2018-09-27 19:11 | CT_ITS ---
STUDY: CT ABDOMEN AND PELVIS WITH CONTRAST REASON FOR EXAM: Female, 28 years old. Right lower quadrant pain RADIATION DOSAGE (If Supplied By Facility): CTDIvol = ( 8.53 ) mGy, DLP = ( 357.38 ) mGycm TECHNIQUE: Transaxial images were obtained from the dome of the diaphragm to the symphysis pubis without oral contrast. 100 ml of Isovue 300 contrast was administered. Sagittal and coronal images were reconstructed. Individualized dose optimization techniques were used for this CT. COMPARISON: July 26, 2017 FINDINGS: The visualized lung bases are unremarkable. The visualized portions of the heart are within normal limits. Normal liver. Normal gallbladder and extrahepatic biliary system. Normal spleen. Normal pancreas. Normal bilateral adrenal glands. Normal right kidney. Normal left kidney. Normal visualized stomach. Normal small intestine. Normal colon. The appendix is visualized and appears normal. Normal abdominal aorta. Normal inferior vena cava. Normal retroperitoneum. Normal urinary bladder. Normal uterus. Bilateral adnexal cystic lesions measuring up to 2.3 cm. Mild pelvic fluid. Bilateral tubal ligation clips. Normal abdominal wall. Normal osseous structures. CT/Abdomen/Pelvis WITH Contrast IMPRESSION: Normal-appearing appendix. Bilateral adnexal cystic nodules. Mild pelvic fluid. Correlate with pelvic ultrasound if needed. Electronically Signed: Hector Josue DO at 21:53 EST Tel [phone], Service support ,
--- NOTE | 2018-09-27 19:13 | ED.DCSUM_ITS ---
- ER Visit Summary Date of Service: 09/27/18 Chief Complaint: Abdominal pain History of Present Illness: The patient is a 28 F presenting with abdominal pain. Pain has been intermittent over the past several months. This has worsened over the past 4 days. Pain is in the right lower quadrant. She has nausea with no vomiting. She denies diarrhea or constipation. Denies urinary complaints. Denies fever. She has history of left ovary removal. Denies possibility of . Physical Examination: Vitals are stable. Patient is afebrile. Alert no acute distress. HEENT exam is unremarkable. Neck is supple. Lungs are clear and equal bilaterally. Heart is regular rate and rhythm. Abdomen is soft right lower quadrant tenderness with no rebound or guarding Extremities are unremarkable. Skin is warm and dry. Remainder of exam is unremarkable. Emergency Department Course and Treatment: Patient was given Zofran IV. CBC, chemistries unremarkable. Urinalysis unremarkable. HCG negative. CT abdomen pelvis shows normal-appearing appendix. Bilateral adnexal cystic nodules. Mild pelvic fluid. On reevaluation, patient is resting comfortably. Advised to follow-up with Dr. Najera her FRAME ALIGNER.. Advised return to ED if worsening complaints. Disposition: Discharge home Impression: Abdominal pain, bilateral adnexal cystic nodules This note was generated with [employer] dictation software. It may contain incorrect words, spelling, and punctuation that were not noted in review of the chart prior to signing ED Disposition - Plan for ED Patient: Instructions: ED Cyst Ovarian Referrals: Constantine Najera MD [STAFF PHYSICIAN] -
[2018-09-27 19:20] LABS: Absolute Lymphocyte Count 1.58 X10^3/ul (0.83-4.51); Absolute Neutrophil Count 3.2 X10^3/uL (2.0-7.7); Basophil# 0.05 X10^3/uL; Basophil% 0.9 % (0-1); Eosinophil# 0.16 X10^3/uL; Hematocrit 36.7 % (37-47); Hemoglobin 11.8 g/dl (12.0-15.0); Lymphocyte # 1.58 X10^3/ul (4.0); Lymphocyte % 29.5 % (19-41); Mean Corp Hgb Conc 32.2 g/gl (32-36); Mean Corpuscular Hgb 27.5 pg (27.0-32.0); Mean Corpuscular Volume 85.5 fL (81-99); Mean Platelet Vol. 11.8 fl (6.2-12.0); Monocyte# 0.32 X10^3/uL; Neutrophil # 3.24 X10^3/uL (2.7-7.7); Neutrophil % 60.4 % (47-70); Platelet Count 153 K/mm3 (150-450); RBC Distribution Width CV 13.4 % (11.6-14.6); RBC Distribution Width SD 42.1 fl (35.1-43.9); Red Blood Count 4.29 M/mm3 (4.2-5.4); White Blood Count 5.4 K/mm3 (4.4-11.0)
[2018-09-27 19:28] LABS: Internal QC Validated? YES +Cl - CLEAR BKGD; Pregnancy, Urine Negative Negative
[2018-09-27] MEDS: Ondansetron 4 MG/2 ML Vial IV (19:28)
[2018-09-27 19:34] LABS: POSITIVE COUNT NO; POSITIVE DIFFERENTIAL NO; POSITIVE MORPHOLOGY NO
[2018-09-27 19:41] LABS: Anion Gap 7 (5-15); BUN 9 mg/dL (7-18); BUN/Creat Ratio 12.7 RATIO (10-20); Calcium,Total 8.1 mg/dL (8.5-10.1); Chloride 109 mmol/L (98-107); Creatinine, Serum 0.71 mg/dL (0.55-1.02); EST Glomerular Filtration Rate 104 mL/min (>60); Est Glom Filt Rate - Afr Amer 126 mL/min (>60); Estimated Creatinine Clearance 96.71 ml/min; Glucose 88 mg/dL (74-106); Potassium 3.7 mmol/L (3.5-5.1); Sodium Level 139 mmol/L (136-145)
[2018-09-27 20:04] LABS: Bacteria 0 SEEN /hpf (None Seen); Mucous, Urine 0 SEEN /hpf (<or=2+)
[2018-09-27 20:05] LABS: Color, Urine Yellow (Yellow); Glucose, Dipstick Normal (Normal); Ketone-Dipstick Negative (Negative); Leukocyte Esterase-Dipstick Negative /ul (Negative); Nitrite-Dipstick Negative (Negative); Occult Blood-Urine Negative /ul (Negative); Protein-Dipstick Negative (Negative); Specific Gravity, Urine 1.015 (1.002-1.030); Urine Bilirubin Dipstick Negative (Negative); Urine Clarity Clear (Clear); Urine Urobilinogen Normal (Normal)
[2018-09-27 20:13] LABS: Squamous Epithelial Cells - UA 0-5 SEEN /hpf (5-10)
[2018-09-27 20:14] LABS: White Blood Cells 0-5 SEEN /hpf (0-5)
[2018-09-27 20:15] LABS: Red Blood Cells-Urine 0-5 SEEN /hpf (0-5)
[2018-09-27 21:00] VITALS: BP 121/74; PULSE 69; RESP 16; O2SAT 99
--- NOTE | 2018-09-27 22:14 | ED.DEP ---
ED Disposition - Plan for ED Patient: Instructions: ED Cyst Ovarian Referrals: Constantine Najera MD [STAFF PHYSICIAN] -
[2018-09-27 22:33] VITALS: BP 120/69; PULSE 67; RESP 16; O2SAT 99
== END 2018-09-27 22:34 | disposition home or self-care (01) ==
LOC: ED 18:21
PROVIDERS: Emergency Provider Emergency Medicine
DX: R10.31 Right lower quadrant pain (principal); R11.0 Nausea; Z72.0 Tobacco use
CPT/HCPCS: 74177; 80048; 81001; 81025; 85025; 96374; 99284; Q9967; A4216; J2405

== ENCOUNTER 2019-04-07 16:21 | Emergency (ER) | payer MEDICAID, SELFPAY ==
[2019-04-07 16:22] VITALS: BP 143/97; PULSE 111; RESP 16; TEMP 36.1; O2SAT 95; BMI 21.2
--- NOTE | 2019-04-07 16:38 | ED.VIS.GEN ---
History of Present Illness Chief Complaint: Suicidal Detail of Chief Complaint: Suicide attempt Informant: Patient, - - Tara ovalles Onset: Today Narrative: Patient presents with tara ovalles after suicide attempt at home. Patient states she has had a lot of family problems recently. She tied a rope around her neck with the intention of hanging herself. She denies that she was standing on any furniture or actually hanging. Her family found her and was able to call police. Patient admits to having depression and sees a counselor at the counseling center. She states she is scheduled to get started on medication on the . She does admit to cutting her wrists as a teenager. Past Medical History - Allergies and Home Meds Allergies/Adverse Reactions: Allergies hydrocodone [From [place]] Allergy (Verified 09/27/18 16:01) Hives ibuprofen [From Motrin] Allergy (Verified 09/27/18 16:01) Itching codeine Adverse Reaction (Verified 09/27/18 16:01) Nausea/Vom/Diarrhea Primary Care Physician: Care Physician,No Primary [Primary Care Provider] - Prior records reviewed: Yes Past Medical History: - - Reviewed Surgical History: - - Left ovary removed Lives: With Family Smoking Status: Current every day smoker Alcohol: None Drugs: None Review of Systems General: Denies: Chills, Fever Eyes: Denies: Visual changes - bilaterally ENT: Denies: Bilateral ear pain Cardiovascular: Denies: Chest pain Respiratory: Denies: Dyspnea, Cough Gastrointestinal: Denies: Abdominal pain, Nausea, Vomiting Genitourinary: Denies: Dysuria Musculoskeletal: Denies: Back pain, Extremity Pain Skin: Reports: Abrasions Neurological: Denies: Headache Psych: Reports: Depression, Suicidal ideations Hematologic: Denies: Easy bruising Allergy: Denies: Uticaria Physical Exam Vital Signs/Narrative: Vital Signs Temp Pulse Resp BP Pulse Ox 04/07/19 16:22 97 F L 111 H 16 143/97 H 95 Inital Vital Signs reviewed: Yes General: Well nourished, Well developed Head: Normocephalic Eyes: Perrl, EOMI ENT: Moist mucous membranes Neck: - - 8 cm linear erythematous dougie over the anterior neck. No edema or ecchymosis. No tenderness. Cardiovascular: Regular rate, Regular rhythm Respiratory: No distress, CTA bilaterally Abdomen: Soft, Nontender Extremities: Nontender, No edema Skin: - - Neck erythema as above Neurological: Alert, Oriented x3, Normal Strength, Normal Sensation Psychological: Depressed, Tearful Diagnostic/Tx/Re-eval Laboratory Results 04/07/19 04/07/19 04/07/19 16:40 16:40 16:40 WBC 7.6 RBC 4.54 Hgb 12.9 Hct 39.0 MCV 85.9 MCH 28.4 MCHC 33.1 RDW Std Deviation 40.1 RDW Coeff of [place] 12.9 Plt Count 218 MPV 11.8 Immature Gran % (Auto) 0.400 Neut % (Auto) 75.0 H Lymph % (Auto) 17.2 L [place] % (Auto) 4.9 Eos % (Auto) 1.6 Baso % (Auto) 0.9 Absolute Neuts (auto) 5.7 Absolute Lymphs (auto) 1.31 Nucleated RBC % 0 Sodium 143 Potassium 3.6 Chloride 113 H Carbon Dioxide 23.0 Anion Gap 7 BUN 9 Creatinine 0.63 Estim Creat Clear Calc 108.01 Est GFR (MDRD) Af Amer 143 Est GFR (MDRD) Non-Af 119 BUN/Creatinine Ratio 14.4 Glucose 88 Calcium 8.8 Serum , Qual Urine Opiates Screen Urine Methadone Screen Ur Barbiturates Screen Ur Phencyclidine Scrn Ur Amphetamines Screen U Methamphetamin-MDMA U Benzodiazepines Scrn Urine Cocaine Screen U Cannabinoids Screen Ur Drug Screen Comment Ethyl Alcohol < 3.0 04/07/19 04/07/19 16:40 17:12 WBC RBC Hgb Hct MCV MCH MCHC RDW Std Deviation RDW Coeff of [place] Plt Count MPV Immature Gran % (Auto) Neut % (Auto) Lymph % (Auto) [place] % (Auto) Eos % (Auto) Baso % (Auto) Absolute Neuts (auto) Absolute Lymphs (auto) Nucleated RBC % Sodium Potassium Chloride Carbon Dioxide Anion Gap BUN Creatinine Estim Creat Clear Calc Est GFR (MDRD) Af Amer Est GFR (MDRD) Non-Af BUN/Creatinine Ratio Glucose Calcium Serum , Qual NEGATIVE Urine Opiates Screen NEGATIVE Urine Methadone Screen NEGATIVE Ur Barbiturates Screen NEGATIVE Ur Phencyclidine Scrn NEGATIVE Ur Amphetamines Screen NEGATIVE U Methamphetamin-MDMA NEGATIVE U Benzodiazepines Scrn NEGATIVE Urine Cocaine Screen NEGATIVE U Cannabinoids Screen NEGATIVE Ur Drug Screen Comment Ethyl Alcohol - Medical Decision Making Patient was seen by Braydon from the counseling center. We agreed the patient would require transfer for further treatment and care. She has been accepted at [facility]. When the patient was advised that she would need to be transferred for further treatment she became very upset, threatening to leave. She was given 10 mg of Geodon. Patient will be transferred via EMS to [facility]. ED Disposition - Plan for ED Patient: Disposition: Psychiatric Hospital or Unit Diagnosis: Suicidal ideation, Suicide gesture
[2019-04-07 16:49] LABS: Absolute Lymphocyte Count 1.31 X10^3/uL (0.83-4.51); Absolute Neutrophil Count 5.7 X10^3/uL (2.0-7.7); Basophil# 0.07 X10^3/uL; Basophil% 0.9 % (0-1); Eosinophil# 0.12 X10^3/uL; Eosinophils% 1.6 % (0-5); Hemoglobin 12.9 g/dL (12.0-15.0); Lymphocyte # 1.31 X10^3/ul (4.0); Lymphocyte % 17.2 % (19-41); Mean Corp Hgb Conc 33.1 g/dL (32-36); Mean Corpuscular Hgb 28.4 pg (27.0-32.0); Mean Corpuscular Volume 85.9 fL (81-99); Mean Platelet Vol. 11.8 fl (6.2-12.0); Monocyte# 0.37 X10^3/uL; Monocyte% 4.9 % (0-10); NRBC Flagged by Analyzer 0 % (0-5); Neutrophil # 5.71 X10^3/uL (2.7-7.7); Platelet Count 218 K/mm3 (150-450); RBC Distribution Width CV 12.9 % (11.6-14.6); RBC Distribution Width SD 40.1 fl (35.1-43.9); Red Blood Count 4.54 M/mm3 (4.2-5.4); White Blood Count 7.6 K/mm3 (4.4-11.0)
[2019-04-07 16:57] LABS: Internal QC Validated? YES +Cl - CLEAR BKGD; Pregnancy, Serum, hCG Quali. NEGATIVE Negative
[2019-04-07 17:02] LABS: Anion Gap 7 (5-15); BUN 9 mg/dL (7-18); BUN/Creat Ratio 14.4 RATIO (10-20); Calcium,Total 8.8 mg/dL (8.5-10.1); Chloride 113 mmol/L (98-107); Creatinine, Serum 0.63 mg/dL (0.55-1.02); EST Glomerular Filtration Rate 119 mL/min (>60); Est Glom Filt Rate - Afr Amer 143 mL/min (>60); Estimated Creatinine Clearance 108.01 ml/min; Glucose 88 mg/dL (74-106); Potassium 3.6 mmol/L (3.5-5.1); Sodium Level 143 mmol/L (136-145)
[2019-04-07 17:31] LABS: Alcohol, Blood (Medical)-Serum < 3.0 mg/dL
[2019-04-07 17:35] LABS: Amphetamine Urine VISTA NEGATIVE (<1000 ng/mL); Barbiturate Urine VISTA NEGATIVE (< 200 ng/mL); Benzodiazepine Urine VISTA NEGATIVE (< 200 ng/mL); Cocaine Urine VISTA NEGATIVE (< 300 ng/mL); Ecstacy Urine VISTA NEGATIVE (< 500 ng/mL); Methadone Urine VISTA NEGATIVE (< 300 ng/mL); PCP Urine VISTA NEGATIVE (< 25 ng/mL); THC Urine VISTA NEGATIVE (< 50 ng/mL); Vista UDS pH Range 7
[2019-04-07 18:31] VITALS: RESP 18
[2019-04-07 19:00] VITALS: RESP 16
[2019-04-07 21:00] VITALS: BP 132/101; PULSE 112; RESP 18; O2SAT 99
[2019-04-07] MEDS: Ziprasidone IM 20 MG/ML VIAL 10 MG IM (21:26)
--- NOTE | 2019-04-07 21:27 | ED.RN ---
PT ON THE PHONE YELLING AND SCREAMING. PT REFUSING TO GIVE PHONE TO THE STAFF. STAFF ATTEMPTED TO TALK WITH THE PT CALMLY TO CONVINCE PT TO CALM DOWN AND TURN OVER PHONE FOR APPROX 45MIN. PT CONTINUES TO REFUSE TO TURN OVER PHONE. PT AGITATION AND YELLING INCREASING. PT STATES YOU AIN'T TAKING MY PHONE. I WILL FIGHT YOU. PHONE REMOVED FROM PT HAND. PT GIVEN GEODON PER ORDER IN LEFT ARM. PT CONTINUING TO YELL AND SCREAM. CURSING AT THE STAFF AND POLICE. PT STATES FUCK YOU. I WILL GET MY PHONE BACK. I AM GOING TO [place]ORGE ALL OF YOU.
[2019-04-07 22:00] VITALS: RESP 18
[2019-04-07] MEDS: Ondansetron ODT 4 MG Tablet PO (22:00)
--- NOTE | 2019-04-07 23:20 | ED.RN ---
PT ACCEPTED AT [facility]. THEY STATED THEY CAN NOT TAKE THIS PT TILL 0300.
[2019-04-08] VITALS (7 sets, daily range): BP systolic 100–121; BP diastolic 63–84; PULSE 58–68; RESP 16–26; O2SAT 97–98
--- NOTE | 2019-04-08 05:35 | ED.RN ---
PT MADE AWARE THAT MOTHER HAS CALLED MULTIPLE TIMES. PT STATES SHE DOES NOT WANT TO CALL HER BACK OR TALK TO HER AT THIS TIME.
--- NOTE | 2019-04-08 07:09 | ED.RN ---
PT D/C IN THE CARE OF EMS TEAM TRANSPORT TO [facility].
== END 2019-04-08 07:09 ==
PROVIDERS: Emergency Provider Emergency Medicine
DX: F32.9 Major depressive disorder, single episode, unspecified (principal); S19.9XXA Unspecified injury of neck, initial encounter; T14.91XA Suicide attempt, initial encounter; X83.8XXA Intentional self-harm by other specified means, initial encounter; Y93.9 Activity, unspecified; Y92.9 Unspecified place or not applicable; Y99.9 Unspecified external cause status; F17.200 Nicotine dependence, unspecified, uncomplicated; Z88.5 Allergy status to narcotic agent; Z88.6 Allergy status to analgesic agent
CPT/HCPCS: 36415; 80048; 80307; 80320; 84703; 85025; 96372; 99284; G0480; J3486

== ENCOUNTER 2020-02-10 17:17 | Emergency (ER) | payer MEDICAID, SELFPAY ==
[2020-02-10 17:18] VITALS: BP 127/92; PULSE 95; RESP 18; TEMP 36.4; O2SAT 98; BMI 21.2
--- NOTE | 2020-02-10 17:38 | ED.DCSUM_ITS ---
History of Present Illness Chief Complaint: Nausea/Vomiting/Diarrhea Informant: Patient Onset: Today Current Severity: Mild Maximum Severity: Mild Narrative: She presents with a bitemporal headache that is been present for the past couple of days. She been taking Tylenol at home. This morning she developed nausea, vomiting, and diarrhea as well. She denies having fever. She denies abdominal pain just has a constant nauseous feeling. Past Medical History - Allergies and Home Meds Allergies/Adverse Reactions: Allergies hydrocodone [From [place]] Allergy (Verified 02/10/20 17:20) Hives ibuprofen [From Motrin] Allergy (Verified 02/10/20 17:20) Itching Penicillins [PCN] Allergy (Verified 02/10/20 17:20) RAPID HEART BEAT codeine Adverse Reaction (Verified 02/10/20 17:20) Nausea/Vom/Diarrhea Primary Care Physician: Care Physician,No Primary [Primary Care Provider] - Past Medical History: None Surgical History: - - Left ovary removed Lives: With Family Smoking Status: Current every day smoker Review of Systems General: Denies: Chills, Fever Eyes: Denies: Visual changes - bilaterally ENT: Denies: Bilateral ear pain Cardiovascular: Denies: Chest pain Respiratory: Denies: Dyspnea, Cough Gastrointestinal: Reports: Nausea, Vomiting, Diarrhea. Denies: Abdominal pain Genitourinary: Denies: Dysuria Musculoskeletal: Denies: Swelling, Extremity Pain Skin: Denies: Rash Neurological: Reports: Headache. Denies: Weakness, Parasthesia Hematologic: Denies: Easy bruising, Easy bleeding Allergy: Denies: Uticaria Physical Exam Vital Signs/Narrative: Vital Signs Temp Pulse Resp BP Pulse Ox 02/10/20 17:18 97.6 F L 95 18 127/92 H 98 Inital Vital Signs reviewed: Yes General: Well nourished, Well developed Head: Normocephalic ENT: Moist mucous membranes Neck: Supple Cardiovascular: Regular rate, Regular rhythm Respiratory: No distress, CTA bilaterally Abdomen: Soft, Nontender, Hypoactive bowel sounds Skin: Normal color Neurological: Alert, Oriented x3 Psychological: Normal affect Diagnostic/Tx/Re-eval Laboratory Results 02/10/20 02/10/20 17:52 17:56 WBC 6.8 RBC 4.42 Hgb 13.2 Hct 39.9 MCV 90.3 MCH 29.9 MCHC 33.1 RDW Std Deviation 40.0 RDW Coeff of [place] 12.1 Plt Count 156 MPV 12.2 H Immature Gran % (Auto) 0.100 Neut % (Auto) 58.4 Lymph % (Auto) 30.5 [place] % (Auto) 5.8 Eos % (Auto) 4.3 Baso % (Auto) 0.9 Absolute Neuts (auto) 4.0 Absolute Lymphs (auto) 2.06 Nucleated RBC % 0 Urine Color Yellow Urine Clarity Sl. Cloudy Urine pH 6.5 Ur Specific [place] 1.015 Urine Protein Negative Urine Glucose (UA) Normal Urine Ketones 5 H Urine Occult Blood Negative Urine Nitrite Negative Urine Bilirubin Negative Urine Urobilinogen 1 H Ur Leukocyte Esterase 100 H Urine RBC 0 SEEN Urine WBC 0-5 SEEN Ur Squamous Epith Cells 5-10 SEEN Urine Bacteria RARE Urine Mucus 0 SEEN - Medical Decision Making Patient was given Reglan and Benadryl along with fluids for her headache. I was notified a short time later that the patient did not want to stay in the emergency room and wait for her test results. I would back and reevaluate the patient. She states she just does not like hospitals or IVs and wanted to go home. I will send a prescription for Zofran to the pharmacy for her. If any of her test results are blatantly abnormal or need further testing I will call her. ED Disposition - Plan for ED Patient: Disposition: Home or Assisted Living Diagnosis: Cephalgia, Vomiting Prescriptions: Ondansetron [Zofran Odt] 4 mg PO Q8H PRN PRN #10 tab PRN Reason: Nausea Transmission Status: Pending to [facility] Referrals: Care Physician,No Primary [Primary Care Provider] -
[2020-02-10 17:57] LABS: Mucous, Urine 0 SEEN /hpf (<or=2+); Red Blood Cells-Urine 0 SEEN /hpf (0-5)
[2020-02-10] MEDS: Metoclopramide 10 MG/2 ML Vial 5 MG IV (17:59)
[2020-02-10] MEDS: DiphenhydrAMINE 50 MG/ML Syringe 25 MG IV (17:59)
[2020-02-10] MEDS: 0.9% Normal Saline 1,000 ML 1000 ML IV (18:00)
[2020-02-10 18:02] LABS: Color, Urine Yellow (Yellow); Glucose, Dipstick Normal (Normal); Ketone-Dipstick 5 mg/dl (Negative); Leukocyte Esterase-Dipstick 100 /ul (Negative); Nitrite-Dipstick Negative (Negative); Occult Blood-Urine Negative /ul (Negative); Protein-Dipstick Negative (Negative); Specific Gravity, Urine 1.015 (1.002-1.030); Urine Bilirubin Dipstick Negative (Negative); Urine Clarity Sl. Cloudy (Clear); Urine Urobilinogen 1 mg/dl (Normal); Urine pH 6.5 (5.0 - 8.0)
[2020-02-10 18:18] LABS: Absolute Lymphocyte Count 2.06 X10^3/uL (0.83-4.51); Basophil# 0.06 X10^3/uL; Basophil% 0.9 % (0-1); Eosinophil# 0.29 X10^3/uL; Eosinophils% 4.3 % (0-5); Hematocrit 39.9 % (37-47); Hemoglobin 13.2 g/dL (12.0-15.0); Lymphocyte # 2.06 X10^3/ul (4.0); Lymphocyte % 30.5 % (19-41); Mean Corp Hgb Conc 33.1 g/dL (32-36); Mean Corpuscular Hgb 29.9 pg (27.0-32.0); Mean Corpuscular Volume 90.3 fL (81-99); Mean Platelet Vol. 12.2 fl (6.2-12.0); Monocyte# 0.39 X10^3/uL; Monocyte% 5.8 % (0-10); NRBC Flagged by Analyzer 0 % (0-5); Neutrophil # 3.95 X10^3/uL (2.7-7.7); Neutrophil % 58.4 % (47-70); Platelet Count 156 K/mm3 (150-450); RBC Distribution Width CV 12.1 % (11.6-14.6); Red Blood Count 4.42 M/mm3 (4.2-5.4); White Blood Count 6.8 K/mm3 (4.4-11.0)
[2020-02-10 18:18] LABS: Squamous Epithelial Cells - UA 5-10 SEEN /hpf (5-10); White Blood Cells 0-5 SEEN /hpf (0-5)
--- NOTE | 2020-02-10 18:18 | ED.RN ---
pt requesting to leave. she wants her IV out and to leave. states i would rather be sick at home then sick here. Dr. Donovan made aware. Dr. Donovan in to assess. Pt stating she can't stay here while her mother watches her kids. IV removed. pt ambulates out.
[2020-02-10 18:20] VITALS: RESP 18
[2020-02-10 18:20] LABS: Bacteria RARE /hpf (None Seen)
[2020-02-10 18:36] LABS: AST(SGOT) 11 U/L (15-37); Alanine Aminotransfer ALT/SGPT 19 U/L (13-56); Albumin, Serum 3.8 g/dL (3.2-5.0); Alkaline Phosphatase 63 U/L (45-117); Anion Gap 5 (5-15); BUN 11 mg/dL (7-18); BUN/Creat Ratio 13.3 RATIO (10-20); Bilirubin, Direct 0.11 mg/dL (0.00-0.30); Calcium,Total 8.8 mg/dL (8.5-10.1); Chloride 108 mmol/L (98-107); Creatinine, Serum 0.83 mg/dL (0.55-1.02); EST Glomerular Filtration Rate 86 mL/min (>60); Est Glom Filt Rate - Afr Amer 104 mL/min (>60); Estimated Creatinine Clearance 81.98 ml/min; Globulin 3.2 g/dL (2.2-4.2); Glucose 89 mg/dL (74-106); Lipase 111 U/L (73-393); Potassium 3.5 mmol/L (3.5-5.1); Sodium Level 140 mmol/L (136-145)
[2020-02-10 19:00] LABS: Internal QC Validated? YES +Cl - CLEAR BKGD
[2020-02-10 19:01] LABS: Pregnancy, Serum, hCG Quali. NEGATIVE Negative
== END 2020-02-10 18:27 | disposition home or self-care (01) ==
LOC: ED 18:15
PROVIDERS: Emergency Provider Emergency Medicine
DX: R51 Headache (principal); R11.2 Nausea with vomiting, unspecified; R19.7 Diarrhea, unspecified; F17.210 Nicotine dependence, cigarettes, uncomplicated
CPT/HCPCS: 80048; 80076; 81001; 83690; 84703; 85025; 96361; 96374; 96375; 99283; J7030; A4216

== ENCOUNTER → 2020-02-14 | Outpatient (CLI) | payer MEDICAID, SELFPAY ==
[2020-02-10 17:18] VITALS: BMI 21.2
== END | disposition home or self-care (01) ==
LOC: LABSPEC 12:07
DX: Z20.828 Contact with and (suspected) exposure to other viral communicable diseases (principal)
CPT/HCPCS: 87635; C9803; G2023; U0003